=== PATIENT | male | born 1985 | race Caucasian/White ===

== ENCOUNTER → 2021-06-02 18:21 | Outpatient (CLI) | payer OTHER, SELFPAY ==
[2021-06-04 20:08] LABS: Covid Inpatient test code BILL Performed (.)
== END ==
PROVIDERS: PCP Family Medicine; Visit Provider Physician Assistant Surgical
DX: Z11.52 Encounter for screening for COVID-19 (principal)
CPT/HCPCS: 87635; U0005; U0003

== ENCOUNTER → 2021-07-14 12:05 | Outpatient (CLI) | payer OTHER, SELFPAY | PROVIDERS: PCP Family Medicine; Referring Provider Physician Assistant Surgical; Visit Provider Physician Assistant Surgical | DX: U07.1 COVID-19 (principal) | CPT/HCPCS: 87635; U0005; U0003 ==

== ENCOUNTER 2025-07-16 16:21 | Emergency (ER) | payer OTHER, SELFPAY ==
[2025-07-16 16:24] VITALS: BP 148/118; PULSE 88; RESP 18; TEMP 35.8; O2SAT 99; BMI 39.0
--- NOTE | 2025-07-16 16:56 | ED.VIS.BACK ---
HPI History of Present Illness Chief Complaint: Back Detail of Chief Complaint: Back pain Informant: patient Narrative Narrative: Patient presents the emergency department complaint of back pain that began about a week ago. Patient states that [place] when he started having some soreness in his back and then progressively became tighter and tighter to the point where he did not feel like he could drive home and had his girlfriend drive. Since that time he is having pain with movement. At times has had some sharp pains into his left buttock and posterior left thigh. No weakness in the extremity. No change in bowel or bladder function. No fever or recent illness. Denies urinary symptoms. Patient has history of intermittent issues with his back but usually gets better after a day or 2. He has been taking ibuprofen and not getting much relief. He does have to perform the lifting duties at work. [facility] Medical History Knee pain Shoulder pain Home Medications ?Medication ?Instructions ?Recorded ?Last Taken ?Type cyclobenzaprine 10 mg tablet 10 mg PO TID PRN Muscle Spasm #20 07/16/25 Unknown Rx TABLETS hydrocodone-acetaminophen 5-325mg 1 tab PO Q4H PRN PRN Pain 2 days 07/16/25 Unknown Rx 5mg-325mg #12 TABLETS naproxen 500 mg tablet 500 mg PO BID #20 tabs 07/16/25 Unknown Rx Allergy/AdvReac Type Severity Reaction Status Date / Time latex Allergy unknown Verified 07/16/25 16:23 Family History Father Neck deformity, acquired Surgical History History of ankle surgery Social History Smoking Status: Never smoker alcohol intake: never ROS ROS ED Review of Systems ROS Unobtainable: other Constitutional Constitutional ED: Reports lethargy; Denies chills, fever(s), sweats or weight loss Eyes Eyes: Denies blurry vision, change in vision or diplopia ENT ENT ED: Denies rhinorrhea or sore throat Cardiovascular Cardiovascular: Denies chest pain, orthopnea or racing heartbeat Respiratory/Chest Respiratory/Chest: Denies cough, dyspnea, dyspnea on exertion, orthopnea or sputum Gastrointestinal Gastrointestinal: Denies abdominal pain, diarrhea, nausea or vomiting Genitourinary Genitourinary ED: Denies dysuria, hematuria or urinary frequency Musculoskeletal Musculoskeletal: Reports back pain; Denies arthralgias, myalgias or neck pain Integumentary Denies abscess, Abrasions or rash Neurologic Neurologic: Denies headache(s) or weakness Psychiatric Psychiatric: Denies anxiety, depression or suicidal thoughts Endocrine Endocrinology: Denies polydipsia, polyphagia or polyuria Hematologic/Lymphatic Hematologic/Lymphatic: Denies easy bleeding, easy bruising or lymphadenopathy Allergic/Immunologic Allergic/Immunologic ED: Denies mouth swelling, tongue swelling or urticaria EXAM Physical Exam Const Vital Signs: 07/16/25 16:24 Temperature 96.4 F L Temperature Source Temporal Pulse Rate 88 Respiratory Rate 18 Blood Pressure 148/118 H Blood Pressure Mean 128 Pulse Ox 99 Oxygen Delivery Method Room Air Positive well nourished and well developed General Appearance ED: well developed and NAD HEENT Reports TM's clear and moist mucous membranes normocephalic and atraumatic; Negative for trauma or tenderness Tympanic Membrane ED: Yes TM's clear Eyes PERRL and EOMs intact bilaterally General Eye ED: Negative for pale conjunctiva or scleral icterus Neck no lymphadenopathy, supple and no JVD General: Negative for tenderness Chest Wall inspection of chest normal and palpation of chest normal Chest: Negative for tenderness Resp normal respiratory effort and clear to auscultation bilaterally Effort and Inspection: Negative for respiratory distress or pain with movement Auscultation: Negative for rhonchi, wheezes or diminished lung sounds Cardio regular rate, regular rhythm, S1 normal heart sound, S2 normal heart sound and no murmurs Peripheral Pulses: pulses 2+ throughout GI normal to inspection, nondistended, normoactive bowel sounds, soft to palpation, non-tender, non-distended and no masses Back/Spine no CVA tenderness and no thoracic nor lumbar tenderness Back/Spine Narrative: Mild tenderness over the lumbar paraspinal musculature bilaterally with some spasm noted. This seems to reproduce his pain. He has negative straight leg raises. Deep tendon reflexes plus 1 out of 4 bilaterally at the patella and Achilles. He has normal L5 extension bilaterally. He has normal sensation to light touch Extremity normal to inspection General Extremety ED: Negative for edema General Extremity: Negative for edema Neuro oriented x3, CN's II-XII intact bilaterally, no sensory deficits noted and gait normal Sensorium / Orientation: awake, alert, oriented to person, oriented to place and oriented to time Motor Exam: strength 5/5 throughout and strength abnormal Psych mental status grossly normal Skin no rashes or lesions noted and no wounds MDM MDM MDM Narrative Medical decision making narrative: Patient presents with atraumatic back pain. No deformities on exam and there is no erythema or cellulitic changes. No urinary symptoms. Suspect likely muscular spasm. I do not feel x-rays are indicated at this point. There is possibility of sciatica potentially involving the left side. No signs or symptoms of cauda equina. Patient will be treated with Naprosyn as well as Flexeril and [place] for pain. He will be given work restrictions. He will be referred to Ortho for follow-up within the next 5 to 7 days for Discharge Plan Triage Chief Complaint: Back ED Provider: Wilfrid Wahl Dx/Rx/DC Orders Clinical Impression: Back pain Instructions: ED Back Pain (Acute or Chronic), ED Back Spasm, No Trauma Prescriptions: New cyclobenzaprine 10 mg tablet 10 mg PO TID PRN (Reason: Muscle Spasm) Qty: 20 0RF hydrocodone-acetaminophen 5-325 mg tablet 1 tab PO Q4H PRN PRN (Reason: Pain) 2 Days Qty: 12 0RF naproxen 500 mg tablet 500 mg PO BID Qty: 20 0RF Referrals: Jose Babin MD [Med Staff - Active Staff, Orthopedics] - 5-7 Days Print Language: Italian Disposition Disposition: Home, Self Care
[2025-07-16 17:07] VITALS: BP 148/118; PULSE 88; RESP 18; TEMP 35.8; O2SAT 99
--- OUTSIDE RECORDS SUMMARY | 2025-07-16 17:20 | XMS RPT_ITS | CCD ---
Author Organization [facility]UDENT [facility]ICER [facility] Results Test Name Value Interpretation Reference Range Facil ity COVID 19, JACINTO WC(RT COLLECT )on 07-14-2021 SARS-CoV-2 (COVID-19) RNA JACINTO+probe Ql (Unsp spec) Detected Normal Not Detect [facility] Comment on above: Order Comment: Reaso n for Exam: loss of smell and taste Result Comment: Norm al Reference Range: Not Detected Method:(RT-PCR) real-time reverse transcriptase PCR [employer] Instrument *The Food and Drug Administration (FDA) has issued an Emergency Use Authorization (EAU) for the [employer] SARS-CoV-2 Assay for the rapid detection of the virus that causes COVID-19. This test has been validated, but the FDAs independent review of this validation is pending. *Negative results do not preclude infection and should not be used as the sole basis for treatment or patient management. Optimum specimen types and timing for peak viral levels during infections caused by SARS-CoV-2 have not been determined. Collection of multiple specimens from the same patient may be necessary to detect the virus. The possibility of a false negative result should be considered if the patient has clinical presentation or has had recent exposure. Performed By: #### L 3400.2405 #### [facility] [address] [place], [place], [id number] Urgent Care Visit Reporton 1 Urgent Care Visit Report [facility] [address] [place] [address] [address] [place], [place] [address] OFFICE VISIT Date of Service: 07/14/21 MR#: [id number] Acct: [id number] Name: ALEXANDRA NAVARRO Rep #: [id number] : 1985 Provider: DESIREE Franklin Age/Sex: 35/M Location: [facility] Status: Signed Intake Vital Signs 07/14/21 10:03 BP 142/90 H Blood Pressure Location Lt brachial Position Sitting Respiration 15 Pulse 102 H Pulse Source Monitor Temp 97.2 F L Temp Source Temporal Pulse Oximetry (%) 98 Oxygen Delivery Method room air Intake Visit Reasons: LOSS OF TASTE/SMELL Allergies latex Allergy (Verified 07/14/21 10:03) unknown Medications NK 12/29/20 [History Confirmed 07/14/21] PFSH Medical History Knee pain Shoulder pain Surgical History History of ankle surgery Family History Father Neck deformity, acquired Social History Smoking Status: Never smoker alcohol intake: never HPI HPI Details: ALEXANDRA NAVARRO, is a 35 M who presents to the office today for complaint of fatigue, cough and loss of taste and smell. Patient states that his loss of taste and smell started last night. He describes his cough is dry, nonproductive and denies hemoptysis, shortness of breath or difficulty breathing. No other associated symptoms or alleviating/aggravati ng factors. ROS Const Constitutional: Positive for other (6 system ROS completed with pertinent findings in the HPI otherwise normal.) Exam Const General: cooperative and well developed HENMT Head: normal to inspection and atraumatic Ears: hearing grossly normal bilaterally Nose: nasal discharge clear Face and sinus: normal facial exam Mouth: oral mucosae normal Throat: abnormal tonsil bilaterally hypertrophy 1+ Resp Effort Inspection: normal respiratory effort and no audible wheezes Auscultation: Bilateral: Clear to Auscultation Cardio Palpation: normal PMI Rate: regular rate Rhythm: regular rhythm Neuro General: patient alert and CN's II-XI intact bilaterally Psych Appearance: grossly normal Mental Status: mental status grossly normal Coding Level of Care Code Off vis,est,level 3 Diagnoses Encounter for screening for COVID-19 Z11.52 Assessment and Plan Assessment and Plan (1) Encounter for screening for COVID-19: Status: Acute Orders: Orders: COVID 19, PCR [facility](RT COLLECT) Today Z11.52 Lito RAMÍREZ PA: Patient swabbed for Covid send out testing in the office today. Encouraged to get plenty of rest, drink lots of clear liquids, and use Tylenol or Ibuprofen (unless contraindicated) for fever and comfort. Patient also educated on other symptomatic management techniques. To be seen in 7-10 days if no improvement; sooner if worsening of symptoms. Patient advised of potential red flags and when appropriate to report to the ED. Patient verbalized understanding and agreement with all the above. 07/14/21 1014 Date Enmanuel RAMÍREZ Cosigner Signature: Date (if applicable) CC: Normal [facility] COVID 19, JACINTO SENDOUTon 09-0 SARS-CoV-2 (COVID-19) RNA JACINTO+probe Ql (Unsp spec) Not detected Normal Not Detected [facility] Comment on above: Order Comment: Reaso n for Exam: encounter for covid test Result Comment: This nucleic acid amplification test was developed and its performance characteristics determined by [employer]. Nucleic acid amplification tests include RT- PCR and TMA. This test has not been FDA cleared or approved. This test has been authorized by FDA under an Emergency Use Authorization (EUA). This test is only authorized for the duration of time the declaration that circumstances exist justifying the authorization of the emergency use of in vitro diagnostic tests for detection of SARS-CoV-2 virus and/or diagnosis of COVID-19 infection under section 564(b)(1) of the Act, 21 U.S.C. 360bbb-3(b) (1), unless the authorization is terminated or revoked sooner. When diagnostic testing is negative, the possibility of a false negative result should be considered in the context of a patient's recent exposures and the presence of clinical signs and symptoms consistent with COVID-19. An individual without symptoms of COVID-19 and who is not shedding SARS-CoV-2 virus would expect to have a negative (not detected) result in this assay. Performed By: #### L 3400.2408 #### [facility] [address] [place], [address] Urgent Care Visit Reporton 0 06-02-2021 Urgent Care Visit Report [facility] [address] [place] [address] OFFICE VISIT Date of Service: 06/02/21 MR#: [id number] Acct: [id number] Name: ALEXANDRA NAVARRO Rep #: [id number] : 1985 Provider: DESIREE Franklin Age/Sex: 35/M Location: [facility] Status: Signed Intake Vital Signs 06/02/21 17:33 BP 128/74 H Blood Pressure Location Lt brachial Position Sitting Respiration 16 Pulse 78 Pulse Source Monitor Temp 98.0 F Temp Source Temporal Pulse Oximetry (%) 99 Oxygen Delivery Method room air Intake Visit Reasons: COVID TEST FOR CONCERT Allergies latex Allergy (Verified 06/02/21 17:33) unknown Medications NK 12/29/20 [History Confirmed 06/02/21] PFSH Medical History Knee pain Shoulder pain Surgical History History of ankle surgery Family History Father Neck deformity, acquired Social History Smoking Status: Never smoker alcohol intake: never HPI HPI Details: ALEXANDRA NAVARRO, is a 35 M who presents to the office today for request of Covid screening test prior to going to a concert. Patient denies any current symptoms. ROS Const Constitutional: Positive for other (6 system ROS completed with pertinent findings in the HPI otherwise normal.) Exam Const General: cooperative and healthy appearing [facility] Head: normocephalic and atraumatic Ears: hearing grossly normal bilaterally Nose: external nose normal Face and sinus: normal facial exam and face symmetric Mouth: oral mucosae normal Throat: posterior oropharynx normal Eyes General: appearance normal, both eyes and all related structures Resp Effort Inspection: normal respiratory effort Auscultation: Bilateral: Clear to Auscultation Cardio Palpation: normal PMI Rate: regular rate Rhythm: regular rhythm Skin General: no rashes or lesions noted Neuro General: patient alert and CN's II-XI intact bilaterally Psych Appearance: grossly normal Mental Status: mental status grossly normal Coding Level of Care Code Off vis,new,level 3 Diagnoses Encounter for screening for COVID-19 Z11. Assessment and Plan Assessment and Plan (1) Encounter for screening for COVID-19: Status: Acute Orders: Orders: COVID 19, PCR SENDOUT 06/02/21 Z11.52 Plan - Enmanuel RAMÍREZ PA: Patient swabbed for COVID-19 send out. Patient advised how to retrieve his information off of the patient portal. Patient verbalized understanding and agreement with all the above. 06/03/21 1306 Date Enmanuel RAMÍREZ Cosigner Signature: Date (if applicable) CC: Normal [facility] .Auto Diffon 02-04-2021 Basophil, Absolute 0.00 10 3/mcL Normal 0.00-0.27 On license of [facility] ([place]) Comment on above: Performed By: #### C BC, ADIFF, ANEU, BILAD, TSH, LIPID, CMP, GFR, A1C #### [address] [address] Basophils/100 WBC (Bld) 0.7 % Normal 0.0-2.5 [facility] ([place]) Comment on above: Performed By: #### C BC, ADIFF, ANEU, BILAD, TSH, LIPID, CMP, GFR, A1C #### [address] [address] Eosinophil, Absolute 0.10 10 3/mcL Normal 0.00-0.65 [facility] ([place]) Comment on above: Performed By: #### C BC, ADIFF, ANEU, BILAD, TSH, LIPID, CMP, GFR, A1C #### [address] [address] Eosinophils/100 WBC (Bld) 2.3 % Normal 0.0-6.0 [facility] ([place]) Comment on above: Performed By: #### C BC, ADIFF, ANEU, BILAD, TSH, LIPID, CMP, GFR, A1C #### [address] [address] Lymphocyte, Absolute 2.30 10 3/mcL Normal 0.90-4.32 [facility] ([place]) Comment on above: Performed By: #### C BC, ADIFF, ANEU, BILAD, TSH, LIPID, CMP, GFR, A1C #### [address] [address] Lymphocytes/100 WBC (Bld) 40.3 % High 20.0-40.0 [facility] ([place]) Comment on above: Performed By: #### C BC, ADIFF, ANEU, BILAD, TSH, LIPID, CMP, GFR, A1C #### [address] [address] Monocyte, Absolute 0.40 10 3/mcL Normal 0.09-1.40 On license of [facility] ([place]) Comment on above: Performed By: #### C BC, ADIFF, ANEU, BILAD, TSH, LIPID, CMP, GFR, A1C #### [address] [address] Monocytes/100 WBC (Bld) 7.9 % Normal 2.0-13.0 [facility] ([place]) Comment on above: Performed By: #### C BC, ADIFF, ANEU, BILAD, TSH, LIPID, CMP, GFR, A1C #### [address] [address] Neutrophils/100 WBC (Bld) 48.8 % Low 50.0-75.0 [facility] ([place]) Comment on above: Performed By: #### C BC, ADIFF, ANEU, BILAD, TSH, LIPID, CMP, GFR, A1C #### [address] [address] .GFRon 02-04-2021 GFR Non- >60 Normal [facility] ([place]) Comment on above: Result Comment: GFR Population mean for , Non- Americans Ages 20-29 = 116 mL/min/1.73 sq.m. Ages 30-39 = 107 mL/min/1.73 sq.m. Ages 40-49 = 99 mL/min/1.73 sq.m. Ages 50-59 = 93 mL/min/1.73 sq.m. Ages 60-69 = 85 mL/min/1.73 sq.m. Ages 70+ = 75 mL/min/1.73 sq.m. Chronic Kidney Disease: Less than 60 mL/min/1.73 square meters End Stage Renal Disease: Less than 15 mL/min/1.73 square meters Performed By: #### C BC, ADIFF, ANEU, BILAD, TSH, LIPID, CMP, GFR, A1C #### [place] [id number] GFR >60 Normal [facility] ([place]) Comment on above: Result Comment: GFR Population mean for , Non- Americans Ages 20-29 = 116 mL/min/1.73 sq.m. Ages 30-39 = 107 mL/min/1.73 sq.m. Ages 40-49 = 99 mL/min/1.73 sq.m. Ages 50-59 = 93 mL/min/1.73 sq.m. Ages 60-69 = 85 mL/min/1.73 sq.m. Ages 70+ = 75 mL/min/1.73 sq.m. Chronic Kidney Disease: Less than 60 mL/min/1.73 square meters End Stage Renal Disease: Less than 15 mL/min/1.73 square meters Performed By: #### C BC, ADIFF, ANEU, BILAD, TSH, LIPID, CMP, GFR, A1C #### [address] [address] .NEUABSon 02-04-2021 Neutrophil, Absolute 2.80 10 3/mcL Normal 2.25-8.10 [facility] ([place]) Comment on above: Performed By: #### C BC, ADIFF, ANEU, BILAD, TSH, LIPID, CMP, GFR, A1C #### [place] [id number] A1Con 02-04-2021 HbA1c (Bld) [Mass fraction] 5.8 % Normal 4.0-6.0 [facility] ([place]) Comment on above: Performed By: #### C BC, ADIFF, ANEU, BILAD, TSH, LIPID, CMP, GFR, A1C #### [place] [address] CBCon 02-04-2021 Erythrocyte distribution width (RBC) [Ratio] 13.3 % Normal 11.5-15.5 [facility] ([place]) Comment on above: Performed By: #### C BC, ADIFF, ANEU, TSH, CMP, GFR, LIPID, A1C #### [place] [address] Hematocrit (Bld) [Volume fraction] 42.3 % Normal 40.0-52.0 [facility] ([place]) Comment on above: Performed By: #### C BC, ADIFF, ANEU, TSH, CMP, GFR, LIPID, A1C #### [place] [address] Hgb 14.4 G/dL Normal 13.0-17.5 [facility] ([place]) Comment on above: Performed By: #### C BC, ADIFF, ANEU, TSH, CMP, GFR, LIPID, A1C #### [place] [address] MCH (RBC) [Entitic mass] 30.1 pg Normal 27.0-33.0 [facility] ([place]) Comment on above: Performed By: #### C BC, ADIFF, ANEU, TSH, CMP, GFR, LIPID, A1C #### [place] [address] MCHC 34.0 G/dL Normal 32.0-36.0 [facility] ([place]) Comment on above: Performed By: #### C BC, ADIFF, ANEU, TSH, CMP, GFR, LIPID, A1C #### [place] [address] MCV (RBC) [Entitic vol] 88.4 fL Normal 81.0-100.0 [facility] ([place]) Comment on above: Performed By: #### C BC, ADIFF, ANEU, TSH, CMP, GFR, LIPID, A1C #### [place] [address] Platelet 270 10 3/mcL Normal 150-450 [facility] ([place]) Comment on above: Performed By: #### C BC, ADIFF, ANEU, TSH, CMP, GFR, LIPID, A1C #### [place] [address] Platelet mean volume (Bld) [Entitic vol] 10.1 fL Normal 6.4-10.5 [facility] ([place]) Comment on above: Performed By: #### C BC, ADIFF, ANEU, TSH, CMP, GFR, LIPID, A1C #### [place] [id number] RBC 4.78 10 6/mcL Normal 4.50-6.00 [facility] ([place]) Comment on above: Performed By: #### C BC, ADIFF, ANEU, TSH, CMP, GFR, LIPID, A1C #### [place] [id number] WBC 5.70 10 3/mcL Normal 4.50-10.80 [facility] ([place]) Comment on above: Performed By: #### C BC, ADIFF, ANEU, TSH, CMP, GFR, LIPID, A1C #### [place] [address] CMPon 02-04-2021 Albumin Level 4.4 G/dL Normal 3.2-4.8 [facility] ([place]) Comment on above: Order Comment: humble ind Performed By: #### C BC, ADIFF, ANEU, BILAD, TSH, LIPID, CMP, GFR, A1C #### [place] [id number] Albumin/Globulin [Mass ratio] 1.8 {ratio} High 0.9-1.6 [facility] ([place]) Comment on above: Order Comment: humble ind Performed By: #### C BC, ADIFF, ANEU, BILAD, TSH, LIPID, CMP, GFR, A1C #### [address] [address] ALP [Catalytic activity/Vol] 56 U/L Normal 38-126 [facility] ([place]) Comment on above: Order Comment: humble ind Performed By: #### C BC, ADIFF, ANEU, BILAD, TSH, LIPID, CMP, GFR, A1C #### [address] [address] ALT [Catalytic activity/Vol] 23 U/L Normal 12-55 [facility] ([place]) Comment on above: Order Comment: humble ind Performed By: #### C BC, ADIFF, ANEU, BILAD, TSH, LIPID, CMP, GFR, A1C #### [place] [id number] AST [Catalytic activity/Vol] 22 U/L Normal 8-34 [facility] ([place]) Comment on above: Order Comment: humble ind Performed By: #### C BC, ADIFF, ANEU, BILAD, TSH, LIPID, CMP, GFR, A1C #### [place] [id number] Bili Total 0.60 mg/dL Normal 0.20-1.20 [facility] ([place]) Comment on above: Order Comment: humble ind Result Comment: Use of this assay is not recommended for patients undergoing treatment with eltrombopag due to the potential for falsely elevated results. Performed By: #### C BC, ADIFF, ANEU, BILAD, TSH, LIPID, CMP, GFR, A1C #### [address] [address] BUN/Creatinine Ratio 21.0 ratio Normal 10.0-22.0 [facility] ([place]) Comment on above: Order Comment: humble ind Performed By: #### C BC, ADIFF, ANEU, BILAD, TSH, LIPID, CMP, GFR, A1C #### [place] [id number] Calcium [Mass/Vol] 10.1 mg/dL Normal 8.7-10.4 Pending sale to [facility] ([place]) Comment on above: Order Comment: uhmble ind Result Comment: No te - New Reference Range in effect 20 Performed By: #### C BC, ADIFF, ANEU, BILAD, TSH, LIPID, CMP, GFR, A1C #### [address] [address] Chloride [Moles/Vol] 108 mmol/L Normal 98-110 [facility] ([place]) Comment on above: Order Comment: humble ind Performed By: #### C BC, ADIFF, ANEU, BILAD, TSH, LIPID, CMP, GFR, A1C #### [address] [address] CO2 [Moles/Vol] 29 mmol/L Normal 22-32 [facility] ([place]) Comment on above: Order Comment: humble ind Performed By: #### C BC, ADIFF, ANEU, BILAD, TSH, LIPID, CMP, GFR, A1C #### [address] [address] Creatinine [Mass/Vol] 0.81 mg/dL Normal 0.60-1.40 [facility] ([place]) Comment on above: Order Comment: humble ind Performed By: #### C BC, ADIFF, ANEU, BILAD, TSH, LIPID, CMP, GFR, A1C #### [address] [address] Electrolyte Balance 5.0 mEq/L Normal 4.0-15.0 [facility] ([place]) Comment on above: Order Comment: humble ind Performed By: #### C BC, ADIFF, ANEU, BILAD, TSH, LIPID, CMP, GFR, A1C #### [address] [address] Globulin 2.4 G/dL Normal 1.5-3.8 [facility] ([place]) Comment on above: Order Comment: humble ind Performed By: #### C BC, ADIFF, ANEU, BILAD, TSH, LIPID, CMP, GFR, A1C #### [address] [address] Glucose [Mass/Vol] 100 mg/dL Normal 70-110 Pending sale to [facility] ([place]) Comment on above: Order Comment: humble ind Performed By: #### C BC, ADIFF, ANEU, BILAD, TSH, LIPID, CMP, GFR, A1C #### [address] [address] Potassium [Moles/Vol] 4.5 mmol/L Normal 3.5-5.0 [facility] ([place]) Comment on above: Order Comment: humble ind Performed By: #### C BC, ADIFF, ANEU, BILAD, TSH, LIPID, CMP, GFR, A1C #### [address] [address] Sodium [Moles/Vol] 142 mmol/L Normal 136-145 Pending sale to [facility] ([place]) Comment on above: Order Comment: humble ind Performed By: #### C BC, ADIFF, ANEU, BILAD, TSH, LIPID, CMP, GFR, A1C #### [address] [address] Total Protein 6.8 G/dL Normal 5.7-8.2 [facility] ([place]) Comment on above: Order Comment: humble ind Result Comment: No te - New Reference Range in effect 20 Performed By: #### C BC, ADIFF, ANEU, BILAD, TSH, LIPID, CMP, GFR, A1C #### [address] [address] Urea nitrogen [Mass/Vol] 17.0 mg/dL Normal 8.0-22.0 [facility] ([place]) Comment on above: Order Comment: humble ind Performed By: #### C BC, ADIFF, ANEU, BILAD, TSH, LIPID, CMP, GFR, A1C #### [address] [address] LIPIDon 02-04-2021 Cholesterol [Mass/Vol] 199 mg/dL Normal 50-199 [facility] ([place]) Comment on above: Result Comment: Chol esterol Reference Interval: Less than 200 Desirable 200-239 Borderline high risk 240 and above High risk Performed By: #### C BC, ADIFF, ANEU, BILAD, TSH, LIPID, CMP, GFR, A1C #### [place] [id number] [address] [place] [address] Cholesterol in HDL [Mass/Vol] 41 mg/dL Normal 40-59 [facility] ([place]) Comment on above: Performed By: #### C BC, ADIFF, ANEU, BILAD, TSH, LIPID, CMP, GFR, A1C #### [place] [id number] [address] [place] [address] Cholesterol in LDL [Mass/Vol] 125 mg/dL Normal 0-129 [facility] ([place]) Comment on above: Performed By: #### C BC, ADIFF, ANEU, BILAD, TSH, LIPID, CMP, GFR, A1C #### [address] [address] Triglyceride [Mass/Vol] 167 mg/dL High 3-149 [facility] ([place]) Comment on above: Performed By: #### C BC, ADIFF, ANEU, BILAD, TSH, LIPID, CMP, GFR, A1C #### [address] [address] TSHon 02-04-2021 TSH 0.921 mIU/mL Normal 0.550-4.780 [facility] ([place]) Comment on above: Result Comment: No te - New Reference Range in effect 20 Performed By: #### C BC, ADIFF, ANEU, BILAD, TSH, LIPID, CMP, GFR, A1C #### [address] [address] .GFRon 05-09-2020 GFR >60 Normal [facility] ([place]) Comment on above: Result Comment: GFR Population mean for , Non- Americans Ages 20-29 = 116 mL/min/1.73 sq.m. Ages 30-39 = 107 mL/min/1.73 sq.m. Ages 40-49 = 99 mL/min/1.73 sq.m. Ages 50-59 = 93 mL/min/1.73 sq.m. Ages 60-69 = 85 mL/min/1.73 sq.m. Ages 70+ = 75 mL/min/1.73 sq.m. Chronic Kidney Disease: Less than 60 mL/min/1.73 square meters End Stage Renal Disease: Less than 15 mL/min/1.73 square meters Performed By: #### C BC, ADIFF, ANEU, BILAD, TSH, LIPID, CMP, GFR, A1C #### [address] [address] GFR Non- >60 Normal [facility] ([place]) Comment on above: Result Comment: GFR Population mean for , Non- Americans Ages 20-29 = 116 mL/min/1.73 sq.m. Ages 30-39 = 107 mL/min/1.73 sq.m. Ages 40-49 = 99 mL/min/1.73 sq.m. Ages 50-59 = 93 mL/min/1.73 sq.m. Ages 60-69 = 85 mL/min/1.73 sq.m. Ages 70+ = 75 mL/min/1.73 sq.m. Chronic Kidney Disease: Less than 60 mL/min/1.73 square meters End Stage Renal Disease: Less than 15 mL/min/1.73 square meters Performed By: #### C BC, ADIFF, ANEU, BILAD, TSH, LIPID, CMP, GFR, A1C #### [address] [address] A1Con 05-09-2020 HbA1c (Bld) [Mass fraction] 5.6 % Normal 4.0-6.0 [facility] ([place]) Comment on above: Order Comment: corby fair location-hum[facility] ind Performed By: #### C BC, ADIFF, ANEU, BILAD, TSH, LIPID, CMP, GFR, A1C #### [address] [address] BILADon 05-09-2020 Bili Direct 0.2 mg/dL Normal 0.0-0.4 [facility] ([place] Comment on above: Order Comment: [facility] location-[facility] ind Result Comment: Use of this assay is not recommended for patients undergoing treatment with eltrombopag due to the potential for falsely elevated results. Performed By: #### C BC, ADIFF, ANEU, BILAD, TSH, LIPID, CMP, GFR, A1C #### [address] [address] CMPon 05-09-2020 Albumin Level 4.5 G/dL Normal 3.2-4.8 [facility] ([place]) Comment on above: Order Comment: [facility] location-humble ind Performed By: #### C BC, ADIFF, ANEU, BILAD, TSH, LIPID, CMP, GFR, A1C #### [address] [address] Albumin/Globulin [Mass ratio] 1.9 {ratio} High 0.9-1.6 [facility] ([place]) Comment on above: Order Comment: [facility] location-[facility] ind Performed By: #### C BC, ADIFF, ANEU, BILAD, TSH, LIPID, CMP, GFR, A1C #### [address] [address] ALP [Catalytic activity/Vol] 62 U/L Normal 38-126 [facility] ([place]) Comment on above: Order Comment: [facility] location-[facility] ind Performed By: #### C BC, ADIFF, ANEU, BILAD, TSH, LIPID, CMP, GFR, A1C #### [address] [address] ALT [Catalytic activity/Vol] 17 U/L Normal 12-55 [facility] ([place]) Comment on above: Order Comment: [facility] location-[facility] ind Performed By: #### C BC, ADIFF, ANEU, BILAD, TSH, LIPID, CMP, GFR, A1C #### [address] [address] AST [Catalytic activity/Vol] 21 U/L Normal 8-34 [facility] ([place]) Comment on above: Order Comment: [facility] location-[facility] ind Performed By: #### C BC, ADIFF, ANEU, BILAD, TSH, LIPID, CMP, GFR, A1C #### [address] [address] Bili Total 0.70 mg/dL Normal 0.20-1.20 [facility] ([place]) Comment on above: Order Comment: [facility] location-[facility] ind Result Comment: Use of this assay is not recommended for patients undergoing treatment with eltrombopag due to the potential for falsely elevated results. Performed By: #### C BC, ADIFF, ANEU, BILAD, TSH, LIPID, CMP, GFR, A1C #### [address] [address] BUN/Creatinine Ratio 25.3 ratio High 10.0-22.0 [facility] ([place]) Comment on above: Order Comment: [facility] location-[facility] ind Performed By: #### C BC, ADIFF, ANEU, BILAD, TSH, LIPID, CMP, GFR, A1C #### [address] [address] Calcium [Mass/Vol] 9.4 mg/dL Normal 8.7-10.4 Pending sale to [facility] ([place]) Comment on above: Order Comment: [facility] location-[facility] ind Result Comment: No te - New Reference Range in effect 20 Performed By: #### C BC, ADIFF, ANEU, BILAD, TSH, LIPID, CMP, GFR, A1C #### [address] [address] Chloride [Moles/Vol] 103 mmol/L Normal 98-110 [facility] ([place]) Comment on above: Order Comment: [facility] location-[facility] ind Performed By: #### C BC, ADIFF, ANEU, BILAD, TSH, LIPID, CMP, GFR, A1C #### [address] [address] CO2 [Moles/Vol] 28 mmol/L Normal 22-32 [facility] ([place]) Comment on above: Order Comment: [facility] location-[facility] ind Performed By: #### C BC, ADIFF, ANEU, BILAD, TSH, LIPID, CMP, GFR, A1C #### [address] [address] Creatinine [Mass/Vol] 0.75 mg/dL Normal 0.60-1.40 [facility] ([place]) Comment on above: Order Comment: [facility] location-[facility] ind Performed By: #### C BC, ADIFF, ANEU, BILAD, TSH, LIPID, CMP, GFR, A1C #### [address] [address] Electrolyte Balance 9.0 mEq/L Normal 4.0-15.0 [facility] ([place]) Comment on above: Order Comment: [facility] location-[facility] ind Performed By: #### C BC, ADIFF, ANEU, BILAD, TSH, LIPID, CMP, GFR, A1C #### [address] [address] Globulin 2.4 G/dL Normal 1.5-3.8 [facility] ([place]) Comment on above: Order Comment: [facility] Performed By: #### C BC, ADIFF, ANEU, BILAD, TSH, LIPID, CMP, GFR, A1C #### [address] [address] Glucose [Mass/Vol] 97 mg/dL Normal 70-110 Pending sale to [facility] ([place]) Comment on above: Order Comment: [facility] Performed By: #### C BC, ADIFF, ANEU, BILAD, TSH, LIPID, CMP, GFR, A1C #### [address] [address] Potassium [Moles/Vol] 4.2 mmol/L Normal 3.5-5.0 [facility] ([place]) Comment on above: Order Comment: [facility] [facility] Performed By: #### C BC, ADIFF, ANEU, BILAD, TSH, LIPID, CMP, GFR, A1C #### [address] [address] Sodium [Moles/Vol] 140 mmol/L Normal 136-145 Pending sale to [facility] ([place]) Comment on above: Order Comment: [facility] Performed By: #### C BC, ADIFF, ANEU, BILAD, TSH, LIPID, CMP, GFR, A1C #### [address] [address] Total Protein 6.9 G/dL Normal 5.7-8.2 [facility] ([place]) Comment on above: Order Comment: [facility] Result Comment: No te - New Reference Range in effect 20 Performed By: #### C BC, ADIFF, ANEU, BILAD, TSH, LIPID, CMP, GFR, A1C #### [address] [address] Urea nitrogen [Mass/Vol] 19.0 mg/dL Normal 8.0-22.0 [facility] ([place]) Comment on above: Order Comment: [facility] [facility] Performed By: #### C BC, ADIFF, ANEU, BILAD, TSH, LIPID, CMP, GFR, A1C #### [address] [address] LIPIDon 05-09-2020 Cholesterol [Mass/Vol] 196 mg/dL Normal 50-199 [facility] ([place]) Comment on above: Order Comment: [facility] [facility] Result Comment: Chol esterol Reference Interval: Less than 200 Desirable 200-239 Borderline high risk 240 and above High risk Performed By: #### C BC, ADIFF, ANEU, BILAD, TSH, LIPID, CMP, GFR, A1C #### [address] [address] Cholesterol in HDL [Mass/Vol] 44 mg/dL Normal 40-59 [facility] ([place] Comment on above: Order Comment: [facility] Performed By: #### C BC, ADIFF, ANEU, BILAD, TSH, LIPID, CMP, GFR, A1C #### [address] [address] Cholesterol in LDL [Mass/Vol] 131 mg/dL High 0-129 [facility] ([place]) Comment on above: Order Comment: [facility] [facility] Performed By: #### C BC, ADIFF, ANEU, BILAD, TSH, LIPID, CMP, GFR, A1C #### [address] [address] Triglyceride [Mass/Vol] 104 mg/dL Normal 3-149 [facility] ([place]) Comment on above: Order Comment: [facility] Performed By: #### C BC, ADIFF, ANEU, BILAD, TSH, LIPID, CMP, GFR, A1C #### [address] [address] TSHon 05-09-2020 TSH 1.108 mIU/mL Normal 0.550-4.780 [facility] ([place]) Comment on above: Order Comment: [facility] Result Comment: No te - New Reference Range in effect 20 Performed By: #### C BC, ADIFF, ANEU, BILAD, TSH, LIPID, CMP, GFR, A1C #### [address] [address] .Auto Diffon 05-08-2020 Basophil, Absolute 0.00 10 3/mcL Normal 0.00-0.27 On license of [facility] ([place]) Comment on above: Performed By: #### C BC, ADIFF, ANEU, BILAD, TSH, LIPID, CMP, GFR, A1C #### [place] [address] Basophils/100 WBC (Bld) 0.7 % Normal 0.0-2.5 [facility] ([place]) Comment on above: Performed By: #### C BC, ADIFF, ANEU, BILAD, TSH, LIPID, CMP, GFR, A1C #### [place] [id number] Eosinophil, Absolute 0.10 10 3/mcL Normal 0.00-0.65 [facility] ([place]) Comment on above: Performed By: #### C BC, ADIFF, ANEU, BILAD, TSH, LIPID, CMP, GFR, A1C #### [address] [address] Eosinophils/100 WBC (Bld) 2.0 % Normal 0.0-6.0 [facility] ([place]) Comment on above: Performed By: #### C BC, ADIFF, ANEU, BILAD, TSH, LIPID, CMP, GFR, A1C #### [place] [id number] Lymphocyte, Absolute 1.80 10 3/mcL Normal 0.90-4.32 [facility] ([place]) Comment on above: Performed By: #### C BC, ADIFF, ANEU, BILAD, TSH, LIPID, CMP, GFR, A1C #### [address] [address] Lymphocytes/100 WBC (Bld) 32.7 % Normal 20.0-40.0 [facility] ([place]) Comment on above: Performed By: #### C BC, ADIFF, ANEU, BILAD, TSH, LIPID, CMP, GFR, A1C #### [address] [address] Monocyte, Absolute 0.50 10 3/mcL Normal 0.09-1.40 On license of [facility] ([place]) Comment on above: Performed By: #### C BC, ADIFF, ANEU, BILAD, TSH, LIPID, CMP, GFR, A1C #### [address] [address] Monocytes/100 WBC (Bld) 9.3 % Normal 2.0-13.0 [facility] ([place]) Comment on above: Performed By: #### C BC, ADIFF, ANEU, BILAD, TSH, LIPID, CMP, GFR, A1C #### [address] [address] Neutrophils/100 WBC (Bld) 55.3 % Normal 50.0-75.0 [facility] ([place] Comment on above: Performed By: #### C BC, ADIFF, ANEU, BILAD, TSH, LIPID, CMP, GFR, A1C #### [address] [address] .NEUABSon 05-08-2020 Neutrophil, Absolute 3.10 10 3/mcL Normal 2.25-8.10 [facility] ([place] Comment on above: Performed By: #### C BC, ADIFF, ANEU, BILAD, TSH, LIPID, CMP, GFR, A1C #### [address] [address] CBCon 05-08-2020 Erythrocyte distribution width (RBC) [Ratio] 13.3 % Normal 11.5-15.5 [facility] ([place] Comment on above: Order Comment: [facility] [place] Performed By: #### C BC, ADIFF, ANEU, BILAD, TSH, LIPID, CMP, GFR, A1C #### [address] [address] Hematocrit (Bld) [Volume fraction] 41.6 % Normal 40.0-52.0 [facility] ([place] Comment on above: Order Comment: [facility] [facility] Performed By: #### C BC, ADIFF, ANEU, BILAD, TSH, LIPID, CMP, GFR, A1C #### [place] [id number] Hgb 14.2 G/dL Normal 13.0-17.5 [facility] ([place] Comment on above: Order Comment: [facility] [facility] Performed By: #### C BC, ADIFF, ANEU, BILAD, TSH, LIPID, CMP, GFR, A1C #### [place] [id number] MCH (RBC) [Entitic mass] 29.4 pg Normal 27.0-33.0 [facility] ([place] Comment on above: Order Comment: [facility] [facility] Performed By: #### C BC, ADIFF, ANEU, BILAD, TSH, LIPID, CMP, GFR, A1C #### [place] [id number] MCHC 34.1 G/dL Normal 32.0-36.0 [facility] ([place] Comment on above: Order Comment: [facility] [facility] Performed By: #### C BC, ADIFF, ANEU, BILAD, TSH, LIPID, CMP, GFR, A1C #### [place] [id number] MCV (RBC) [Entitic vol] 86.3 fL Normal 81.0-100.0 [facility] ([place] Comment on above: Order Comment: [facility] [facility] Performed By: #### C BC, ADIFF, ANEU, BILAD, TSH, LIPID, CMP, GFR, A1C #### [place] [id number] Platelet 265 10 3/mcL Normal 150-450 [facility] ([place]) Comment on above: Order Comment: [place] Performed By: #### C BC, ADIFF, ANEU, BILAD, TSH, LIPID, CMP, GFR, A1C #### [address] [address] Platelet mean volume (Bld) [Entitic vol] 9.4 fL Normal 6.4-10.5 [facility] ([place] Comment on above: Order Comment: [place] Performed By: #### C BC, ADIFF, ANEU, BILAD, TSH, LIPID, CMP, GFR, A1C #### [address] [address] RBC 4.82 10 6/mcL Normal 4.50-6.00 [facility] ([place]) Comment on above: Order Comment: [facility] [facility] Performed By: #### C BC, ADIFF, ANEU, BILAD, TSH, LIPID, CMP, GFR, A1C #### [place] [address] WBC 5.60 10 3/mcL Normal 4.50-10.80 [facility] ([place]) Comment on above: Order Comment: [facility] [facility] Performed By: #### C BC, ADIFF, ANEU, BILAD, TSH, LIPID, CMP, GFR, A1C #### [place] [address] Clinical Note 08-06-2021 Note Date & Type Note Facility 08-06-2021 Note Patient Outreach (NE TNAV) ALEXANDRA NAVARRO ([id number]) 1985 M Date Time Provider Department 08/06/21 LIN STEWART During your visit today, we recorded the following information about you: Lin Stewart Population Health Navigator 08/06/2021 9:33 AM Signed POPULATION HEALTH NAVIGATION OUTREACH Action/ I tried to leave a voice message mailbox was full sending letter No care everywhere Contact made with patient or family member? NO Pt identified by name and : NO Outreach Outcome/Action Unable to reach patient: Phone number not valid / voicemail full Letter mailed Reason for Outreach Attribution: Provider Off-boarding Payer: No coverage found. Care Gap Reviewed:: Reminder: Reminder note to check Health Maintenance for items below Health Maintenance items due: COVID-19 VACCINE(1) Never done DEPRESSION SCREENING Never done HEPATITIS C SCREENING Never done HIV SCREENING Never done DTAP,TDAP,TD(1 - Tdap) Never done INFLUENZA(1) Never done Advanced Directives Completed: Have you ever planned for future healthcare decisions with a power of attorney at law, living will, or advance directives? Yes. Have you shared those records with your doctor? Yes Referrals: N/A Message Sent to Practice: NO Navigation Signature: Lin Stewart Population Health Navigator August 06, 2021 9:32 AM Allergies As of Date: 08/06/2021 Noted Allergy Reaction LATEX 08/06/2014 4 - Hives Date Reviewed: 04/01/2016 Reviewed by: Tanvir Mazariegos LPN - Fully Assessed Reason for Visit: Population Health Navigation Outreach [3910] Cmt: Offboarding Prescriptions as of 08/06/2021 - Phentermine HCl (ADIPEX-P) 37.5 mg capsule Take 1 capsule by mouth once daily. - celecoxib (CELEBREX) 200 mg capsule Take 1 capsule by mouth twice daily. - meclizine (ANTIVERT) 25 mg tab Take 1 tablet by mouth three times daily as needed (dizziness). Problem List As Of Date 08/06/2021 Noted Resolved Arthritis of ankle, right [M19.071] 10/30/2012 Dislocation of right ankle joint [S93.04XA] 10/30/2012 Obesity [E66.9] 10/30/2012 Abnormality of gait [R26.9] 05/28/2015 Letter Text Encounter Status:Closed by [facility] on 08/06/21 [facility] Progress note 08-06-2021 Note Date & Type Note Facility 08-06-2021 Note HNO ID: [id number] Author: Lin Villasenor Health Navigator Service: ? Author Type: ? Type: Progress Notes Filed: 08/06/2021 9:33 AM Note Text: POPULATION HEALTH NAVIGATION OUTREACH Action/FYI I tried to leave a voice message mailbox was full sending letter No care everywhere Contact made with patient or family member? NO Pt identified by name and : NO Outreach Outcome/Action Unable to reach patient: Phone number not valid / voicemail full Letter mailed Reason for Outreach Attribution: Provider Off-boarding Payer: No coverage found. Care Gap Reviewed:: Reminder: Reminder note to check Health Maintenance for items below Health Maintenance items due: COVID-19 VACCINE(1) Never done DEPRESSION SCREENING Never done HEPATITIS C SCREENING Never done HIV SCREENING Never done DTAP,TDAP,TD(1 - Tdap) Never done INFLUENZA(1) Never done Advanced Directives Completed: Have you ever planned for future healthcare decisions with a power of attorney at law, living will, or advance directives? Yes. Have you shared those records with your doctor? Yes Referrals: N/A Message Sent to Practice: NO Navigation Signature: Lin Stewart Population Health Navigator August 06, 2021 9:32 AM [facility] Summary Purpose Family History No Family History Records FoundNo Family History Records FoundNo Family History Records Found Advance Directives No Advanced Directives Records FoundNo Advanced Directives Records FoundNo Advanced Directives Records Found Additional Source Comments (unrecognized sect ion and content) No Status Records FoundNo Status Records FoundNo Status Records Found INFORMATION SOURCE (unrecogn ized section and content) DATE CREATED AUTHOR 02/05/2021 [facility] ([place]) DATE CREATED AUTHOR AUTHOR'S ORGANIZ ATION 10/27/2021 [facility] DATE CREATED AUTHOR AUTHOR'S ORGANIZ ATION 01/08/[address] [facility] FOR RECORDS PERTAINING TO PATIENTS WHO ARE OR HAVE BEEN ENROLLED IN A CHEMICAL DEPENDENCY/SUBSTANCEABUSE PROGRAM, SOME INFORMATION MAY BE OMITTED. This clinical summary was aggregated from multiple sources. Caution should be exercised in using it in the provision of clinical care. This summary normalizes information from multiple sources, and as a consequence, information in this document may materially change the coding, format and clinical context of patient data. In addition, data may be omitted in some cases. CLINICAL DECISIONS SHOULD BE BASED ON THE PRIMARY CLINICAL RECORDS. [employer] [facility]. provides no warranty or guarantee of the accuracy or completeness of information in this document.
== END 2025-07-16 17:11 | disposition home or self-care (01) ==
LOC: ED 17:06
PROVIDERS: Emergency Provider Emergency Medicine; Visit Provider Emergency Medicine
DX: M54.9 Dorsalgia, unspecified (principal); X50.9XXA Other and unspecified overexertion or strenuous movements or postures, initial encounter; Y93.89 Activity, other specified; Y92.834 Zoological garden (Zoo) as the place of occurrence of the external cause
CPT/HCPCS: 99282